=== PATIENT | male | born 1985 | race Two or more races ===

== ENCOUNTER 2023-12-14 16:56 | Emergency (ER) | payer MEDICARE, MEDICAID, SELFPAY ==
[2023-12-14 17:07] VITALS: BP 176/86; PULSE 72; RESP 16; TEMP 36.6; O2SAT 98; BMI 34.8
--- NOTE | 2023-12-14 17:11 | XRR_ITS ---
PROCEDURE INFORMATION: Exam: XR Right Shoulder Exam date and time: 12/14/2023 5:22 PM Age: 38 years old Clinical indication: Right; Patient HX: RT shoulder pain with obvious deformity TECHNIQUE: Imaging protocol: Radiologic exam of the right shoulder. Views: 2 or more views. COMPARISON: No relevant prior studies available. FINDINGS: Bones/joints: Anterior dislocation at the right glenohumeral joint. Small concave deformity at the posterior/superior right humeral head suspicious for Hill-Sachs deformity. Normal bone mineralization. Lungs: Visualized lungs are clear. Soft tissues: No soft tissue swelling. No radiopaque foreign body. XR/XR shoulder RT min 2V* [id number] IMPRESSION: 1. Anterior dislocation at the right glenohumeral joint. 2. Small concave deformity at the posterior/superior right humeral head suspicious for Hill-Sachs deformity. 3. Incidental/nonacute findings are listed in the report.
--- NOTE | 2023-12-14 17:17 | W.ED.EXTPRO ---
Documented by User: JOHNNY Garcia 12/14/23 19:07 HPI - Extremity Problem General: Chief complaint: Extremity Injury, Upper Stated complaint: Right Shoulder pain Time Seen by Provider: 12/14/23 17:17 History of Present Illness: 38-year-old male patient comes in today with injury to the right shoulder. Patient reports falling onto the deck and landing on his right shoulder. Patient has difficulty with range of motion of the shoulder. Patient can abduct but could not abduct shoulder joint. Distal pulses and sensation are intact. Probable anterior shoulder dislocation is noted. Review of Systems General: Reports: 10 or more systems reviewed and unremarkable except in HPI and below Musc: Reports: joint pain (Injury right shoulder) Physical Exam Const: COMMON NORMALS: alert HENMT: COMMON NORMALS: atraumatic HEAD & SCALP: atraumatic Neck/C-Spine: COMMON NORMALS: full ROM Resp: COMMON NORMALS: normal respiratory effort Cardio: COMMON NORMALS: regular rate RATE: regular rate Extremity: RIGHT UPPER EXTREMITY: Yes shoulder joint (Decreased range of motion due to pain, drop-off shoulder) Right shoulder: Yes Right shoulder joint inspection exam, Yes palpation and Yes Right shoulder joint neurovascular exam Neuro: SENSORIUM/ORIENTATION: Yes alert Skin: COMMON NORMALS: turgor normal GENERAL SKIN EXAM: turgor normal Procedures Orthopedic Joint Reduction Joint #1: Side: right Joint Reduction Location: shoulder Analgesia: procedural sedation Shoulder Technique Used (if applicable): external rotation Post-reduction neuro exam: intact Post-reduction vascular: intact Post Reduction X-Ray Obtained: Yes Post Reduction X-Ray Results: reduced Splint Applied: Yes Patient Tolerated Procedure: well Additional Comments: Do attempts to reduce shoulder. Dr. Hubbard and Dr. Johnson both assisted with reduction and conscious sedation. Course Vital Signs: Vital signs: Vital Signs Temperature 97.9 F 12/14/23 17:07 Pulse Rate 66 12/14/23 18:11 Respiratory Rate 16 12/14/23 18:11 Blood Pressure 160/106 12/14/23 18:11 Pulse Oximetry 98 12/14/23 17:07 Oxygen Delivery Me thod Room Air 12/14/23 18:11 MDM - Extremity (Nontraumatic) Medical Decision Making 38-year-old male patient comes in for injury to the right shoulder. On exam patient does have some drop-off noted in the shoulder joint. Patient has tenderness in the anterior part of the shoulder. Differential diagnosis includes AC joint separation, clavicle fracture, proximal humeral fracture, shoulder dislocation. X-ray noted a dislocation of the shoulder. Using procedural sedation with Dr. Hubbard and Dr. Johnson shoulder was reduced successfully. Repeat x-ray confirmation was noted. Neurovascular was intact. Patient was discharged home with case management for follow-up with orthopedist. Lab Data Radiology Impressions Shoulder X-Ray 12/14/23 18:48 IMPRESSION: 1. Interval closed reduction of the right glenohumeral dislocation. Alignment is anatomic. 2. Stable small deformity of the posterior/superior right humeral head consistent with a Hill-Sachs deformity. All radiology interpretation(s) finalized by discharge Discharge Plan Discharge Patient Disposition: Home Clinical Impression: Shoulder dislocation Qualifiers: Encounter type: initial encounter Laterality: right Qualified Code(s): S43.004A - Unspecified dislocation of right shoulder joint, initial encounter Condition: Stable Prescriptions: New hydrocodone-acetaminophen 5-325 mg tablet 1 tab PO Q8H PRN (Reason: pain) Qty: 7 0RF Discharge Orders: Discharge ED (Routine); Ordered 12/14/23 Ordered By: Ej Pinedo Referrals: KATELYNN MENSAH [Primary Care Provider] - Discharge Diet: Usual diet Discharge Activity: Increase activity as tolerated Patient Instructions: Opioid Safety, Pain Management Activity Restrictions/Additional Instructions: Follow-up with public transit specialist. For reevaluation and treatment as needed. Return to ER for new concerns. 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[employer] Documented by User: Richard Hubbard DO 12/14/23 18:23 HPI - Extremity Problem General: Chief complaint: Extremity Injury, Upper Stated complaint: Right Shoulder pain Time Seen by Provider: 12/14/23 17:17 Procedures Procedural Sedation Presedation Evaluation: Right anterior shoulder dislocation ASA Class: III Preparation: manager cardiac applied, pulse oximeter, supplemental O2 applied, suction/airway equipment at bedside and IV secured Midazolam: IV Midazolam dose (mg): 2 IV Etomidate dose (mg): 30 Complications: none Additional Comments: Procedural sedation was performed without complication. Shoulder reduction was performed by RACK WASHER under my supervision. Successful reduction was noted with no complications. Course Vital Signs: Vital signs: Vital Signs Temperature 97.9 F 12/14/23 17:07 Pulse Rate 66 12/14/23 18:11 Respiratory Rate 16 12/14/23 18:11 Blood Pressure 160/106 12/14/23 18:11 Pulse Oximetry 98 12/14/23 17:07 Oxygen Delivery Me thod Room Air 12/14/23 18:11 MDM - Extremity (Nontraumatic) Lab Data Radiology Impressions Shoulder X-Ray 12/14/23 18:48 IMPRESSION: 1. Interval closed reduction of the right glenohumeral dislocation. Alignment is anatomic. 2. Stable small deformity of the posterior/superior right humeral head consistent with a Hill-Sachs deformity. Discharge Plan Discharge Patient Disposition: Home Clinical Impression: Shoulder dislocation Qualifiers: Encounter type: initial encounter Laterality: right Qualified Code(s): S43.004A - Unspecified dislocation of right shoulder joint, initial encounter Condition: Stable Prescriptions: New hydrocodone-acetaminophen 5-325 mg tablet 1 tab PO Q8H PRN (Reason: pain) Qty: 7 0RF Discharge Orders: Discharge ED (Routine); Ordered 12/14/23 Ordered By: Ej Pinedo Referrals: KATELYNN MENSAH [Primary Care Provider] - Discharge Diet: Usual diet Discharge Activity: Increase activity as tolerated Patient Instructions: Opioid Safety, Pain Management Activity Restrictions/Additional Instructions: Follow-up with public transit specialist. For reevaluation and treatment as needed. Return to ER for new concerns. 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
[2023-12-14] MEDS: fentaNYL 50 mcg/mL INJ 2mL 100 MCG IVP (17:30)
[2023-12-14 18:11] VITALS: BP 160/106; PULSE 66; RESP 16; O2SAT 95
[2023-12-14] MEDS: midazolam 1 mg/mL INJ 2 mL 2 MG IVP (18:15)
[2023-12-14] MEDS: etomidate 2 mg/mL INJ SDV 10 mL 30 MG IVP (18:24)
[2023-12-14] MEDS: propofol 10 mg/mL SDV 20 mL 100 MG IV (18:35)
--- NOTE | 2023-12-14 18:48 | XRR_ITS ---
PROCEDURE INFORMATION: Exam: XR Right Shoulder Exam date and time: 12/14/2023 6:24 PM Age: 38 years old Clinical indication: Injury or trauma; Fall; Dislocation; Right; Patient HX: Check S/P shoulder reduction. ; Additional info: Post reduction TECHNIQUE: Imaging protocol: Radiologic exam of the right shoulder. Views: 1 view. COMPARISON: CR (CHEST, ) 12/14/2023 5:22 PM FINDINGS: Bones/joints: Interval closed reduction of the right glenohumeral dislocation. Alignment is anatomic. Stable small deformity of the posterior/superior right humeral head consistent with a Hill-Sachs deformity. Normal bone mineralization. Lungs: The visualized right lung is clear. Soft tissues: No soft tissue swelling. No radiopaque foreign body. XR/XR shoulder RT 1V [id number] IMPRESSION: 1. Interval closed reduction of the right glenohumeral dislocation. Alignment is anatomic. 2. Stable small deformity of the posterior/superior right humeral head consistent with a Hill-Sachs deformity.
--- NOTE | 2023-12-14 19:21 | PC.NURSE ---
Pt sent home with 2 tabs of Belk 5/325 per [employer] [place] Pinedo orders.
[2023-12-14 19:31] VITALS: BP 156/94; PULSE 77; RESP 18; O2SAT 94
--- NOTE | 2023-12-15 08:01 | DCPLANNER ---
Message was sent to ortho on 12/15/23 at 0801 am. Clinic to contact patient for appt.
== END 2023-12-14 19:25 | disposition home or self-care (01) ==
PROVIDERS: Emergency Provider Nurse Practitioner Family; PCP Student in an Organized Health Care Education/Training Program
DX: S43.004A Unspecified dislocation of right shoulder joint, initial encounter (principal); W19.XXXA Unspecified fall, initial encounter
CPT/HCPCS: 23650; 73020; 73030; 96374; 99156; 99285; J2250; J2704; J3010; J3490

== ENCOUNTER 2023-12-15 08:31 | Emergency (ER) | payer MEDICARE, MEDICAID, SELFPAY ==
--- NOTE | 2023-12-15 | XR_ITS ---
WS: [id number] RIGHT SHOULDER: 2 VIEW(S) TECHNIQUE: Internal and external rotation. HISTORY: Postreduction. COMPARISON: Radiographs earlier the same day. Anterior shoulder dislocation has been reduced. There is slight inferior subluxation but this may be due to a small amount of joint effusion or hematoma. Also noted is the sclerosis in the humeral head from a Hill-Sachs deformity. IMPRESSION: Successful anterior postreduction imaging.
--- NOTE | 2023-12-15 08:37 | XR_ITS ---
WS: [id number] RIGHT SHOULDER: 3 VIEW(S) TECHNIQUE: Internal and external rotation with Y view. HISTORY: pain COMPARISON: 12/14/2023 Anterior dislocation is reidentified. Anterior dislocation was also described on 12/14/2023 with inter amor postreduction. Recurrent anterior dislocation and very suspicious for Hill-Sachs deformity of the humeral head. There is a concave defect in the posterolateral humeral head. Clavicle is normal. IMPRESSION: Anterior dislocation with Hill-Sachs deformity. Recurrent from 12/14/2023.
[2023-12-15 09:01] VITALS: BP 159/104; PULSE 59; RESP 18; TEMP 36.8; O2SAT 95
--- NOTE | 2023-12-15 09:21 | W.ED.UPPEXIN ---
HPI - Extremity Injury (Upper) General: Chief Complaint: Extremity Injury, Upper Stated Complaint: right shoulder pain Time Seen by Provider: 12/15/23 08:32 Source: patient Mode of arrival: ambulatory Limitations: no limitations History of Present Illness: Patient is a 38-year-old male who presents to ED today for evaluation of a repeat right shoulder dislocation. Patient was seen here yesterday following a fall/injury to the right shoulder with an anterior dislocation. Shoulder was reduced here in the emergency department successfully and patient was placed in a sling. He states he did not sleep with the sling and this morning attempted to raise his arm above his head when he felt the shoulder re- dislocate. complaint: injury to: right and shoulder Onset (ago): hour(s) Other Extremity Injury: Right: shoulder Other injuries: none Place: home Severity: severe Relieving factors: immobilization Exacerbating factors: movement of extremity Context: other (dislocation) Associated symptoms: Reports no associated symptoms; Denies neck pain or weakness in extremities Review of Systems Card: Denies: chest pain Resp: Denies: dyspnea Musc: Reports: joint pain (R shoulder) and limited range of motion; Denies: neck pain, back pain, extremity pain, extremity swelling, joint redness or joint warmth Neuro: Denies: numbness in extremities, weakness in extremities or sensory changes Physical Exam Const: COMMON NORMALS: patient oriented x3, no limitations, alert and well nourished GENERAL APPEARANCE: cooperative and in distress (uncomfortable secondary to pain) NUTRITIONAL APPEARANCE: overweight ORIENTATION/CONSCIOUSNESS: Yes awake, Yes oriented to person, Yes oriented to place and Yes oriented to time Neck/C-Spine: COMMON NORMALS: full ROM GENERAL: Yes normal visual inspection Chest: COMMONS NORMALS: normal inspection of the chest and normal palpation of entire chest wall Resp: COMMON NORMALS: normal respiratory effort and clear to auscultation bilaterally AUSCULTATION: clear to auscultation bilaterally Cardio: COMMON NORMALS: regular rate and regular rhythm RATE: regular rate RHYTHM: regular rhythm Extremity: COMMON NORMALS: capillary refill normal GENERAL: Yes normal exam except as noted RIGHT UPPER EXTREMITY: Yes shoulder joint (dislocation; effusion) Right shoulder: Yes Right shoulder joint ROM exam (limited secondary to dislocation) and Yes Right shoulder joint neurovascular exam (normal) Neuro: COMMON NORMALS: patient oriented x3, moves all extremities, no focal motor deficits and no sensory deficits noted SENSORIUM/ORIENTATION: Yes alert, Yes oriented to person, Yes oriented to place and Yes oriented to time Course Vital Signs: Vital signs: Vital Signs Temperature 98.3 F 12/15/23 09:01 Pulse Rate 59 L 12/15/23 09:01 Respiratory Rate 21 H 12/15/23 09:46 Blood Pressure 159/104 12/15/23 09:01 Pulse Oximetry 98 12/15/23 09:46 Oxygen Delivery Me thod Room Air 12/15/23 09:01 MDM - Extremity Injury (Upper) Medical Decision Making XR showing recurrent anterior dislocation upon arrival. Patient was given IV Morphine and Norflex and my plan was to attempt direct manipulation without conscious sedation. Following administration of these medications patient felt like joint spontaneously reduced. I did go ahead and place patient in the prone position and attempted scapular manipulation and indeed the joint does appear in place. Repeat XR obtained which confirms reduction. Patient was immediately placed in a sling. We are attempting to locate a shoulder immobilizer as we do not have any here in the emergency department and [facility] was not able to find one. We are contacting PT to bring one. Patient lives in [place] and wants to follow up with ortho there. Will have CM try and get him a follow up appointment. Strict instructions that patient needs to stay in his sling/immobilizer at all times apart from showering or bathing. Medical Records I reviewed the patient's medical records. All radiology interpretation(s) finalized by discharge Discharge Plan Discharge Patient Disposition: Home Clinical Impression: Anterior dislocation of right shoulder Qualifiers: Encounter type: initial encounter Qualified Code(s): S43.014A - Anterior dislocation of right humerus, initial encounter Condition: Stable Prescriptions: No Action montelukast 10 mg tablet 10 mg PO BEDTIME sertraline 50 mg tablet 50 mg PO DAILY rosuvastatin 5 mg tablet 5 mg PO QPM zolpidem 6.25 mg tablet,ext release multiphase 6.25 mg PO BEDTIME Advair Diskus 250-50 mcg/dose Blister With Device 1 inh INHALATION BID hydrocodone-acetaminophen 5-325 mg tablet 1 tab PO Q8H PRN (Reason: pain) Qty: 7 0RF Discharge Orders: Discharge ED (Routine); Ordered 12/15/23 Ordered By: Verenice Hendrickson Referrals: KATELYNN MENSAH [Primary Care Provider] - Patient Instructions: Dislocation - Shoulder, Shoulder Dislocation (ED), Closed Reduction (ED), Shoulder Immobilizer (ED) Activity Restrictions/Additional Instructions: As we discussed you need to stay in your sling/shoulder immobilizer at all times apart from showering or bathing. This includes while sleeping. We will attempt to have case management try to set you up with [facility] orthopedics as you have requested. You need to return to the emergency department if joint dislocates again. 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
[2023-12-15] MEDS: ondansetron 2 mg/ML SDV 2 mL 4 MG IVP (09:42)
[2023-12-15] MEDS: orphenadrine 30 mg/mL Inj 2 mL 60 MG IVP (09:44)
[2023-12-15 09:46] VITALS: RESP 21; O2SAT 98
[2023-12-15] MEDS: morphine 4 mg/mL SDV 1 mL IVP (09:46)
--- NOTE | 2023-12-15 10:27 | DCPLANNER ---
Patients charts was sent to [facility] on 12/15/23 at 1027 am per patient request. Fax number: [phone]. I also gave a stick note to the patient with the [facility] phone number to contact if needed.
== END 2023-12-15 11:02 | disposition home or self-care (01) ==
PROVIDERS: Emergency Provider Physician Assistant; PCP Student in an Organized Health Care Education/Training Program
DX: S43.014A Anterior dislocation of right humerus, initial encounter (principal); X50.9XXA Other and unspecified overexertion or strenuous movements or postures, initial encounter
CPT/HCPCS: 73030; 96374; 96375; 99284; J2270; J2360; J2405